=== PATIENT | male | born 1985 | race Two or more races ===

== ENCOUNTER 2017-03-22 20:46 | Emergency (ER) | payer OTHER ==
[2017-03-22] MEDS ORDERED: IBUPROFEN 400 MG TABLET (FP) PO ONE ×2 (20:58→21:24)
--- NOTE | 2017-03-22 20:58 | PDOC ---
Rapid Medical Evaluation Time Seen by Provider: 03/22/17 20:53 Medical Evaluation: Allergies Allergy/AdvReac Type Severity Reaction Status Date / Time Penicillins AdvReac Verified 06/10/16 11:03 03/22/17 20:53 The patient presents with a chief complaint of: Fever, shortness of breath, body aches, headache, sore throat I have performed a brief in-person evaluation of this patient; Pertinent physical exam findings:CTAB, RRR, Afebrile I have ordered the following: Rapid Strep, influenza, Motrin The patient will proceed to the ED for further evaluation.
[2017-03-22 20:59] VITALS: BP 140/90; PULSE 78; TEMP 98.7; BMI 24.3
[2017-03-22] MEDS ORDERED: ALBUTEROL SO4 2.5/IPRATROPIUM 0.5 INH SOL 3 ML VIAL.NEB. NEB ONE ×3 (21:29→21:59)
--- NOTE | 2017-03-22 21:30 | PDOC ---
History of Present Illness - General Chief Complaint: Cold Symptoms Stated Complaint: S.O.B Time Seen by Provider: 03/22/17 20:53 History Source: Patient Exam Limitations: No Limitations - History of Present Illness Initial Comments: 03/22/17 21:25 31 yr male with c/o cough sore throat fever for 3 days . Pt denies chest pain , has history of HIV, bronchitis, smoking, anxiety. Severity: reports: mild (3 days ) Possible Cause: Yes: occasional episodes Past History - Past Medical History Allergies/Adverse Reactions: Allergies Allergy/AdvReac Type Severity Reaction Status Date / Time Penicillins AdvReac Verified 03/22/17 20:56 Home Medications: Ambulatory Orders Albuterol Sulfate Inhaler - [Ventolin HFA Inhaler -] 1 - 2 inh PO Q4H #1 inhaler 10/14/16 Abacavir/Dolutegravir/Lamivudi [Triumeq Tablet] 1 each PO DAILY #30 tablet 02/22 Lactose-Reduced Food [Ensure Liquid] 237 ml PO TID #96 liquid 02/22/17 Mv-Min/Iron/Folic AC/Geo/D3/Aa [K-[place] Immune Support Tablet] 1 each PO DAILY # 30 tablet 02/22/17 Sertraline HCl [Zoloft] 100 mg PO AM #60 tablet MDD 2 02/22/17 Venlafaxine HCl ER [Effexor Xr -] 37.5 mg PO DAILY #30 cap.er.24h 02/22/17 Venlafaxine HCl ER [Effexor Xr -] 37.5 mg PO DAILY #30 cap.er.24h 02/22/17 Zolpidem Tartrate [Ambien] 10 mg PO HS #30 tablet MDD 1 02/22/17 Albuterol 0.083% Nebulizer Leeanna [Ventolin 0.083% Nebulizer Soln -] 1 neb NEB Q4H #30 vial 03/22/17 Azithromycin [Zithromax -] 250 mg PO UTDICT #6 tab 03/22/17 Prednisone [Deltasone -] 20 mg PO DAILY #5 tablet 03/22/17 Anemia: No Asthma: No Cancer: No Cardiac Disorders: No CVA: No COPD: No (bronchitis ) CHF: No DVT: No Dementia: No Diabetes: No GI Disorders: No Disorders: No HTN: No Hypercholesterolemia: No HIV: Yes Liver Disease: No Psychiatric Problems: Yes (anxiety) Seizures: No Thyroid Disease: No - Surgical History Abdominal Surgery: No Appendectomy: No Cardiac Surgery: No Cholecystectomy: No Lung Surgery: No Neurologic Surgery: No - Suicide/Smoking/Psychosocial Hx Smoking History: Never smoked Have you smoked in the past 12 months: No Number of Cigarettes Smoked Daily: 6 If you are a former smoker, when did you quit?: 2 months ago Cigars Per Day: 0 Information on smoking cessation initiated: No Hx Alcohol Use: No Drug/Substance Use Hx: No Substance Use Type: None Hx Substance Use Treatment: No Respiratory Specific PMHX - Complaint Specific PMHX Bronchitis: Yes Review of Systems - Review of Systems Able to Perform ROS?: Yes Is the patient limited Turkmen proficient: No Constitutional: No: Symptoms Reported HEENTM: Yes: Symptoms Reported, Throat Pain Respiratory: Yes: Cough, Shortness of Breath, Productive cough Cardiac (ROS): No: Symptoms Reported ABD/GI: No: Symptoms Reported : No: Symptoms Reported Musculoskeletal: No: Symptoms Reported Integumentary: No: Symptoms Reported Neurological: No: Symptoms reported *Physical Exam - Vital Signs Last Vital Signs Temp Pulse Resp BP Pulse Ox 98.7 F 78 18 140/90 100 03/22/17 20:56 03/22/17 20:56 03/22/17 20:56 03/22/17 20:56 03/22/17 20:56 - Physical Exam General Appearance: Yes: Nourished, Appropriately Dressed HEENT: positive: EOMI, JERONIMO, TMs Normal, Pharynx Normal Neck: positive: Supple. negative: Tender, Lymphadenopathy (R), Lymphadenopathy (L) Respiratory/Chest: positive: Wheezing Cardiovascular: positive: Regular Rhythm, Regular Rate Gastrointestinal/Abdominal: positive: Normal Bowel Sounds, Soft Musculoskeletal: positive: Normal Inspection Extremity: positive: Normal Capillary Refill, Normal Inspection, Normal Range of Motion Medical Decision Making - Medical Decision Making 03/22/17 21:31 cc: cough sore throat states fever yesterday non toxic stable vitals afebrile will give duoneb now, CXR rapid strep and flu sent from [facility] 03/22/17 22:03 pt improved after nebulizer *DC/Admit/Observation/Transfer Diagnosis at time of Disposition: Bronchitis - Prescriptions Prescriptions: Albuterol 0.083% Nebulizer Leeanna [Ventolin 0.083% Nebulizer Soln -] 1 neb NEB Q4H #30 vial Azithromycin [Zithromax -] 250 mg PO UTDICT #6 tab Prednisone [Deltasone -] 20 mg PO DAILY #5 tablet - Referrals Referrals: Santana Richards, TOOL SPECIALIST [Primary Care Provider] - - Patient Instructions Printed Discharge Instructions: DI for Acute Bronchitis Additional Instructions: use the nebulizer as prescribed at home take the zpack as directed take the next dose of prednisone tomorrow drink pleanty of water to stay well hydrated follow with your doctor TOMORROW Return to ER for any worsening symptoms right away - Post Discharge Activity
[2017-03-22] MEDS ORDERED: predniSONE 20 MG TABLET (UD) PO ONE (21:32)
[2017-03-22] MEDS ORDERED: predniSONE 20 MG TABLET (UD) ONE (21:41)
[2017-03-22] MEDS ORDERED: ALBUTEROL SO4 0.083% IH SOL 2.5 MG/3 ML VIAL.NEB. NEB ONE (21:59)
== END 2017-03-22 22:21 | disposition home or self-care (01) ==
LOC: JERFT 20:46
PROC: 3E0F7GC Introduction of Other Therapeutic Substance into Respiratory Tract, Via Natural or Artificial Opening (ICD-10-PCS; principal; 2017-03-22)
PROC: 3E0F7GC Introduction of Other Therapeutic Substance into Respiratory Tract, Via Natural or Artificial Opening (ICD-10-PCS; 2017-03-22)
DX: J40 Bronchitis, not specified as acute or chronic (principal); R51 Headache
CPT/HCPCS: 71046-TC; 87070; 87430; 87804; 99281-25

== ENCOUNTER 2020-06-25 04:52 | Day surgery (SDC) | payer OTHER ==
[2020-06-24 10:10] VITALS: BMI 31.3
[2020-06-25 10:54] VITALS: TEMP 97.8
[2020-06-25 11:31] VITALS: BP 119/67; PULSE 72
== END 2020-06-25 11:40 | disposition home or self-care (01) ==
LOC: JASU-ENDO 04:52
PROVIDERS: ATTEND Internal Medicine Gastroenterology
PROC: 0DB78ZX Excision of Stomach, Pylorus, Via Natural or Artificial Opening Endoscopic, Diagnostic (ICD-10-PCS; 2020-06-25)
PROC: 0DB28ZX Excision of Middle Esophagus, Via Natural or Artificial Opening Endoscopic, Diagnostic (ICD-10-PCS; 2020-06-25)
PROC: 0DB38ZX Excision of Lower Esophagus, Via Natural or Artificial Opening Endoscopic, Diagnostic (ICD-10-PCS; 2020-06-25)
PROC: 0DB98ZX Excision of Duodenum, Via Natural or Artificial Opening Endoscopic, Diagnostic (ICD-10-PCS; principal; 2020-06-25 10:00)
DX: K29.50 Unspecified chronic gastritis without bleeding (principal); K25.3 Acute gastric ulcer without hemorrhage or perforation; K44.9 Diaphragmatic hernia without obstruction or gangrene; R10.13 Epigastric pain
CPT/HCPCS: 88305-TC; 88342-TC

== ENCOUNTER 2021-04-01 09:22 | Emergency (ER) | payer OTHER ==
[2021-04-01 09:42] VITALS: BMI 25.1
[2021-04-01] MEDS ORDERED: SOTROVIMAB 500 MG in SODIUM CHLORIDE 100 ML IVPB ONE (10:01)
[2021-04-01 14:02] VITALS: BP 123/80; PULSE 80; TEMP 97.6
== END 2021-04-01 13:10 | disposition home or self-care (01) ==
LOC: JCOVINFU 09:22
DX: U07.1 COVID-19 (principal)
CPT/HCPCS: 99284-25; M0247; Q0247

== ENCOUNTER 2021-05-19 12:16 | Emergency (ER) | payer OTHER ==
[2021-05-19 12:35] VITALS: TEMP 98.2; BMI 26.6
[2021-05-19 13:25] LABS: BASO % 0.3 % (0-2.0); EOS % 0.3 % (0-4.5); HEMATOCRIT 40.8 % (35.4-49); HEMOGLOBIN 14.5 GM/dL (11.7-16.9); LYMPH % 15.6 % (8-40); MCH 32.3 pg (25.7-33.7); MCHC 35.6 g/dl (32.0-35.9); MEAN CELL VOLUME 90.9 fl (80-96); NEUT % 74.8 % (42.8-82.8); PLATELET COUNT 336 10^3/uL (134-434); RBC 4.48 M/mm3 (4.00-5.60); RDW 12.8 % (11.9-15.9); WHITE BLOOD COUNT 6.8 K/mm3 (4.0-10.0)
[2021-05-19 13:54] LABS: ALBUMIN 4.1 g/dl (3.4-5.0); BLOOD UREA NITROGEN 11.8 mg/dL (7-18); CALCIUM 8.8 mg/dL (8.5-10.1)
[2021-05-19 13:57] LABS: CREATININE 0.8 mg/dL (0.55-1.3)
[2021-05-19 13:59] LABS: BILIRUBIN,TOTAL 1.8 mg/dL (0.2-1); TOT PROT 7.2 g/dl (6.4-8.2)
[2021-05-19 16:39] VITALS: BP 133/91; PULSE 74
[2021-05-20 13:08] LABS: SARS-CoV-2 NAA Not Detected (Not Detected)
== END 2021-05-19 16:43 | disposition home or self-care (01) ==
LOC: JER 12:16
DX: R06.02 Shortness of breath (principal); R51.9 Headache, unspecified; Z21 Asymptomatic human immunodeficiency virus [HIV] infection status
CPT/HCPCS: 36415; 71046-TC-FY; 71275-TC; 80053; 84484; 85025; 86359; 86360; 99285-25; C9803; Q9967; U0003; U0005

== ENCOUNTER 2022-01-16 13:34 | Emergency (ER) | payer OTHER ==
[2022-01-16 13:51] VITALS: TEMP 100.2; BMI 25.8
[2022-01-16] MEDS ORDERED: SODIUM CHLORIDE 0.9% 500 ML INFUS.BAG IV ONE (14:16)
[2022-01-16] MEDS ORDERED: PANTOPRAZOLE SODIUM 40 MG VIAL IVPUSH ONE (14:17)
[2022-01-16] MEDS ORDERED: ONDANSETRON 4 MG/2 ML VIAL IVPUSH ONE (14:17)
[2022-01-16] MEDS ORDERED: ACETAMINOPHEN 1000 MG/100 ML BAG IVPB ONE (14:17)
[2022-01-16] MEDS ORDERED: ONDANSETRON 4 MG/2 ML VIAL ONE (15:29)
[2022-01-16] MEDS ORDERED: PANTOPRAZOLE SODIUM 40 MG VIAL ONE (15:29)
[2022-01-16] MEDS ORDERED: ACETAMINOPHEN INJECTION 100 ML IVPB ONE (15:29)
[2022-01-16 16:16] LABS: HEMATOCRIT 39.5 % (35.4-49); HEMOGLOBIN 13.9 GM/dL (11.7-16.9); MCH 31.9 pg (25.7-33.7); MCHC 35.1 g/dl (32.0-35.9); MEAN PLT VOLUME 7.4 fl (7.5-11.1); PLATELET COUNT 297 10^3/uL (134-434); RBC 4.35 M/mm3 (4.00-5.60); RDW 12.2 % (11.9-15.9); WHITE BLOOD COUNT 8.3 K/mm3 (4.0-10.0)
[2022-01-16 16:19] LABS: EPI CELLS 7 /uL (0-25.1); HYALINE CASTS 2 /uL (0-3.1); URINE APPEARANCE CLEAR; URINE BACTERIA 0 /uL (0-1359); URINE BILIRUBIN 1+ (NEGATIVE); URINE COLOR DK YELLOW; URINE GLUCOSE (UA) NEGATIVE (NEGATIVE); URINE KETONE 1+ (NEGATIVE); URINE LEUK ESTERASE TRACE (NEGATIVE); URINE NITRITE NEGATIVE (NEGATIVE); URINE PROTEIN TRACE (NEGATIVE); URINE RBC 18 /uL (0-23.9); URINE WBC 7 /uL (0-25.8)
[2022-01-16 16:28] LABS: INR 1.31 (0.83-1.09); PROTHROMBIN TIME (PATIENT) 15.1 SEC (9.7-13.0)
[2022-01-16 16:34] LABS: BASO % 0.1 % (0-2.0); LYMPH % 8.9 % (8-40); MONO % 18.3 % (3.8-10.2); NEUT % 72.7 % (42.8-82.8)
[2022-01-16 16:35] LABS: CALCIUM 8.1 mg/dL (8.5-10.1)
[2022-01-16 16:36] LABS: ALBUMIN 3.4 g/dl (3.4-5.0); BLOOD UREA NITROGEN 10.6 mg/dL (7-18)
[2022-01-16 16:39] LABS: CREATININE 0.8 mg/dL (0.55-1.3)
[2022-01-16 16:41] LABS: TOT PROT 6.4 g/dl (6.4-8.2)
[2022-01-16] MEDS ORDERED: IBUPROFEN 400 MG TABLET (FP) PO ONE ×2 (19:24→19:39)
[2022-01-16 20:30] VITALS: BP 130/67; PULSE 100; RESP 20
== END 2022-01-16 20:31 | disposition home or self-care (01) ==
LOC: JER 13:34
PROC: 3E0333Z Introduction of Anti-inflammatory into Peripheral Vein, Percutaneous Approach (ICD-10-PCS; principal; 2022-01-16)
PROC: 3E033GC Introduction of Other Therapeutic Substance into Peripheral Vein, Percutaneous Approach (ICD-10-PCS; 2022-01-16)
PROC: 3E033GC Introduction of Other Therapeutic Substance into Peripheral Vein, Percutaneous Approach (ICD-10-PCS; 2022-01-16)
DX: K52.9 Noninfective gastroenteritis and colitis, unspecified (principal)
CPT/HCPCS: 0241U-QW; 36415; 71046-TC-FY; 76705-TC; 80053; 81003; 84484; 85025; 85610; 93005; 93010; 99285-25

== ENCOUNTER 2022-06-17 13:15 | Emergency (ER) | payer OTHER ==
[2022-06-17 13:28] VITALS: BP 153/93; PULSE 81; RESP 18; TEMP 99; BMI 24.3
[2022-06-17] MEDS ORDERED: ALBUTEROL SO4 2.5/IPRATROPIUM 0.5 INH SOL 3 ML VIAL.NEB. NEB ONE (14:53)
[2022-06-17] MEDS ORDERED: DEXAMETHASONE SOD PHOSPHATE 10 MG/1 ML VIAL IM ONE (14:55)
[2022-06-17] MEDS ORDERED: DEXAMETHASONE SOD PHOSPHATE 10 MG/1 ML VIAL ONE (15:04)
[2022-06-17] MEDS: ALBUTEROL SO4 2.5/IPRATROPIUM 0.5 INH SOL 3 ML VIAL.NEB. NEB SCH ×2 (15:06→15:07)
== END 2022-06-17 16:45 | disposition home or self-care (01) ==
LOC: JERFT 13:15 → JER 13:15
PROC: 3E0F7GC Introduction of Other Therapeutic Substance into Respiratory Tract, Via Natural or Artificial Opening (ICD-10-PCS; principal; 2022-06-17)
PROC: 3E023GC Introduction of Other Therapeutic Substance into Muscle, Percutaneous Approach (ICD-10-PCS; 2022-06-17)
DX: R07.89 Other chest pain (principal); Z20.822 Contact with and (suspected) exposure to COVID-19
CPT/HCPCS: 0241U-QW; 71046-TC-FY; 93005; 93010; 99285-25; J1100

== ENCOUNTER 2022-06-18 20:59 | Inpatient (IN) | payer OTHER ==
[2022-06-18] MEDS ORDERED: ACETAMINOPHEN 1000 MG/100 ML BAG IVPB ONE (21:35)
[2022-06-18] MEDS ORDERED: ACETAMINOPHEN INJECTION 100 ML IVPB ONE (21:51)
[2022-06-18 21:52] LABS: VENOUS BASE EXCESS 0.8 mmol/L (-2-2); VENOUS O2 SATURATION 89.7 % (70-80); VENOUS PCO2 31.7 mmHg (38-52); VENOUS PH 7.482 (7.310-7.410)
[2022-06-18 21:57] LABS: BASO % 0.2 % (0-2.0); EOS % 0.1 % (0-4.5); HEMATOCRIT 44.7 % (35.4-49); HEMOGLOBIN 15.8 GM/dL (11.7-16.9); LYMPH % 11.3 % (8-40); MCH 31.5 pg (25.7-33.7); MCHC 35.4 g/dl (32.0-35.9); MEAN CELL VOLUME 88.8 fl (80-96); MONO % 3.5 % (3.8-10.2); NEUT % 84.9 % (42.8-82.8); PLATELET COUNT 194 10^3/uL (134-434); RBC 5.03 M/mm3 (4.00-5.60); RDW 12.6 % (11.9-15.9); WHITE BLOOD COUNT 4.8 K/mm3 (4.0-10.0)
[2022-06-18 22:18] LABS: CALCIUM 7.6 mg/dL (8.5-10.1); LACTIC ACID 3.8 mmol/L (0.4-2.0)
[2022-06-18 22:19] LABS: ALBUMIN 2.9 g/dl (3.4-5.0); BLOOD UREA NITROGEN 15.4 mg/dL (7-18)
[2022-06-18] MEDS ORDERED: AZITHROMYCIN IVPB 500 MG in DEXTROSE 5%-WATER - 250 ML IVPB ONE (22:21)
[2022-06-18 22:23] LABS: BILIRUBIN,TOTAL 1.7 mg/dL (0.2-1)
[2022-06-18 22:26] LABS: ANISOCYTOSIS 1+; MACROCYTOSIS 0; N-TERMINAL BNP 744.9 pg/ml (5-125)
[2022-06-18] MEDS ORDERED: AZITHROMYCIN IVPB 500 MG/250 ML BAG IVPB ONE (22:54)
[2022-06-18] MEDS ORDERED: SODIUM CHLORIDE 0.9% 500 ML INFUS.BAG IV ONE (23:04)
[2022-06-18] MEDS ORDERED: LACTATED RINGERS SOLUTION 1,000 ML/1,000 ML INFUS.BAG IV SCH (23:15)
[2022-06-19] MEDS ORDERED: ACETAMINOPHEN 325 MG TABLET (FP) PO PRN (00:10)
[2022-06-19] MEDS ORDERED: SULFAMETHOXAZOLE/TRIMETHOPRIM 800MG/160MG D.S. TABLET PO SCH (00:15)
[2022-06-19] MEDS ORDERED: VANCOMYCIN 1 GM/200 ML PREMIX BAG (RESTRICTED TO ID ONLY) IVPB SCH (00:30)
[2022-06-19] MEDS ORDERED: ALBUTEROL SO4 2.5/IPRATROPIUM 0.5 INH SOL 3 ML VIAL.NEB. NEB ONE (01:43)
[2022-06-19] MEDS ORDERED: methylPREDNISolone NA SUCC 40 MG/1 ML VIAL ONE (01:43)
[2022-06-19] MEDS ORDERED: ACETAMINOPHEN 325 MG TABLET (FP) ONE (01:43)
[2022-06-19] MEDS ORDERED: ONDANSETRON 4 MG/2 ML VIAL IVPUSH ONE (01:49)
[2022-06-19] MEDS ORDERED: ONDANSETRON 4 MG/2 ML VIAL ONE (01:50)
[2022-06-19] MEDS: ALBUTEROL SO4 2.5/IPRATROPIUM 0.5 INH SOL 3 ML VIAL.NEB. NEB SCH ×5 (02:01→19:53)
[2022-06-19] MEDS: LACTATED RINGERS SOLUTION 1,000 ML IV SCH (02:01)
[2022-06-19] MEDS: methylPREDNISolone NA SUCC 40 MG/1 ML VIAL IVPUSH SCH ×4 (02:02→21:33)
[2022-06-19 03:37] VITALS: BMI 26.6
[2022-06-19] MEDS: ABACAVIR/DOLUTEGRAVIR/LAMIVUDI (TRIUMEQ) TABLET PO SCH (09:25)
[2022-06-19] MEDS: ENOXAPARIN NA (PORCINE) 40 MG/0.4 ML DISP.SYRIN SQ SCH (09:25)
[2022-06-19] MEDS: PANTOPRAZOLE 20 MG TABLET PO SCH (09:25)
[2022-06-19] MEDS: ONDANSETRON *ODT* 4 MG TABLET SL SCH ×2 (09:25→21:33)
[2022-06-19] MEDS ORDERED: SULFAMETHOXAZOLE 80 MG/TRIMETHOPRIM 16 MG/ML VIAL IVPB SCH (10:00)
[2022-06-19] MEDS ORDERED: WATER IVPB SCH (10:45)
[2022-06-19] MEDS ORDERED: DEXTROSE 5% IVPB SCH (10:45)
[2022-06-19] MEDS ORDERED: SULFAMETHOXAZOLE IVPB SCH (10:45)
[2022-06-19] MEDS ORDERED: TRIMETHOPRIM IVPB SCH (10:45)
[2022-06-19] MEDS: LIDOCAINE 5% TOPICAL PATCH TP SCH (11:34)
[2022-06-19] MEDS ORDERED: ALBUTEROL SO4 0.042% IH SOL 1.25 MG/3 ML VIAL.NEB NEB PRN (14:53)
[2022-06-19 15:20] LABS: EPI CELLS 4 /uL (0-25.1); HYALINE CASTS 0 /uL (0-3.1); PH,URINE 7.5 (5.0-8.0); URINE APPEARANCE CLEAR; URINE BACTERIA 6 /uL (0-1359); URINE BILIRUBIN NEGATIVE (NEGATIVE); URINE COLOR YELLOW; URINE GLUCOSE (UA) NEGATIVE (NEGATIVE); URINE KETONE TRACE (NEGATIVE); URINE LEUK ESTERASE NEGATIVE (NEGATIVE); URINE NITRITE NEGATIVE (NEGATIVE); URINE PROTEIN 1+ (NEGATIVE); URINE RBC 9 /uL (0-23.9); URINE UROBILINOGEN 4.0 E.U/dl mg/dL (0.2-1.0); URINE WBC 2 /uL (0-25.8)
[2022-06-19] MEDS ORDERED: VANCOMYCIN IVPB ONE (15:30)
[2022-06-19] MEDS ORDERED: VANCOMYCIN PREMIX 1.5 GM 1,500 MG/300 ML BAG IVPB ONE (15:30)
[2022-06-19 19:06] LABS: LACTIC ACID 3.2 mmol/L (0.4-2.0)
[2022-06-19] MEDS: LIDOCAINE PATCH REMOVAL MC SCH (21:33)
[2022-06-19 22:29] LABS: LACTIC ACID 2.5 mmol/L (0.4-2.0)
[2022-06-20] MEDS ORDERED: VANCOMYCIN 1 GM/200 ML PREMIX BAG (RESTRICTED TO ID ONLY) IVPB SCH (00:30)
[2022-06-20] MEDS: methylPREDNISolone NA SUCC 40 MG/1 ML VIAL IVPUSH SCH ×3 (03:14→21:33)
[2022-06-20] MEDS ORDERED: VANCOMYCIN/WATER 1250 MG 1,250 MG/250 ML BAG IVPB SCH ×2 (03:30→05:00)
[2022-06-20] MEDS: LACTATED RINGERS SOLUTION 1,000 ML IV SCH (04:43)
[2022-06-20] MEDS: ALBUTEROL SO4 2.5/IPRATROPIUM 0.5 INH SOL 3 ML VIAL.NEB. NEB SCH ×4 (09:00→20:55)
[2022-06-20] MEDS: LACTATED RINGERS SOLUTION 1,000 ML/1,000 ML INFUS.BAG IV SCH ×2 (09:20→16:28)
[2022-06-20] MEDS: PANTOPRAZOLE 20 MG TABLET PO SCH (09:27)
[2022-06-20] MEDS: LIDOCAINE 5% TOPICAL PATCH TP SCH (09:27)
[2022-06-20] MEDS: ABACAVIR/DOLUTEGRAVIR/LAMIVUDI (TRIUMEQ) TABLET PO SCH (09:27)
[2022-06-20] MEDS: amLODIPine BESYLATE 5 MG TABLET (FP) PO SCH (09:27)
[2022-06-20] MEDS: ONDANSETRON *ODT* 4 MG TABLET SL SCH ×2 (09:27→21:34)
[2022-06-20] MEDS: ENOXAPARIN NA (PORCINE) 40 MG/0.4 ML DISP.SYRIN SQ SCH (09:27)
[2022-06-20 09:45] LABS: HEMATOCRIT 35.7 % (35.4-49); HEMOGLOBIN 12.6 GM/dL (11.7-16.9); MCH 31.2 pg (25.7-33.7); MCHC 35.2 g/dl (32.0-35.9); MEAN CELL VOLUME 88.6 fl (80-96); MEAN PLT VOLUME 8.3 fl (7.5-11.1); PLATELET COUNT 221 10^3/uL (134-434); RBC 4.03 M/mm3 (4.00-5.60); WHITE BLOOD COUNT 14.8 K/mm3 (4.0-10.0)
[2022-06-20 10:05] LABS: ALBUMIN 2.5 g/dl (3.4-5.0); CALCIUM 8.3 mg/dL (8.5-10.1); MAGNESIUM 2.3 mg/dL (1.8-2.4)
[2022-06-20 10:05] LABS: LACTIC ACID 2.3 mmol/L (0.4-2.0)
[2022-06-20 10:09] LABS: CREATININE 0.8 mg/dL (0.55-1.3); PHOSPHOROUS 1.6 mg/dL (2.5-4.9)
[2022-06-20 10:10] LABS: BILIRUBIN,TOTAL 0.9 mg/dL (0.2-1); TOT PROT 5.7 g/dl (6.4-8.2)
[2022-06-20 10:27] LABS: ANISOCYTOSIS 0; HELMET CELLS 0; HOWELL-JOLLY BODIES 0; MACROCYTOSIS 0; OVALOCYTE 0; ROULEAU 0; SICKELED CELLS 0; TARGET CELLS 0; TEAR DROP CELLS 0; TOXIC GRANULATION 0
[2022-06-20] MEDS: BUPRENORPHINE/NALOXONE 8 MG/2 MG FILM PACKET SL SCH (11:27)
[2022-06-20] MEDS: SULFAMETHOXAZOLE/TRIMETHOPRIM 800MG/160MG D.S. TABLET PO SCH (16:27)
[2022-06-20] MEDS ORDERED: KETOROLAC TROMETHAMINE 15 MG/ML VIAL IVPUSH ONE (16:29)
[2022-06-20 18:54] LABS: LACTIC ACID 2.8 mmol/L (0.4-2.0)
[2022-06-20] MEDS ORDERED: ACETAMINOPHEN 500 MG TABLET (FP) PO PRN (18:57)
[2022-06-21] MEDS: LIDOCAINE PATCH REMOVAL MC SCH ×2 (01:20→21:57)
[2022-06-21] MEDS: ALBUTEROL SO4 2.5/IPRATROPIUM 0.5 INH SOL 3 ML VIAL.NEB. NEB SCH ×4 (08:09→20:00)
[2022-06-21 09:44] LABS: HEMATOCRIT 35.2 % (35.4-49); HEMOGLOBIN 12.4 GM/dL (11.7-16.9); MCH 31.2 pg (25.7-33.7); MCHC 35.3 g/dl (32.0-35.9); MEAN CELL VOLUME 88.4 fl (80-96); MEAN PLT VOLUME 8.2 fl (7.5-11.1); PLATELET COUNT 305 10^3/uL (134-434); RBC 3.98 M/mm3 (4.00-5.60); WHITE BLOOD COUNT 15.2 K/mm3 (4.0-10.0)
[2022-06-21 10:01] LABS: ALBUMIN 2.4 g/dl (3.4-5.0); MAGNESIUM 2.2 mg/dL (1.8-2.4)
[2022-06-21 10:04] LABS: BLOOD UREA NITROGEN 13.8 mg/dL (7-18); CREATININE 0.7 mg/dL (0.55-1.3); PHOSPHOROUS 1.7 mg/dL (2.5-4.9)
[2022-06-21 10:05] LABS: BILIRUBIN,TOTAL 0.7 mg/dL (0.2-1); TOT PROT 5.7 g/dl (6.4-8.2)
[2022-06-21] MEDS: ONDANSETRON *ODT* 4 MG TABLET SL SCH ×2 (10:19→21:58)
[2022-06-21] MEDS: amLODIPine BESYLATE 5 MG TABLET (FP) PO SCH (10:19)
[2022-06-21] MEDS: LIDOCAINE 5% TOPICAL PATCH TP SCH (10:19)
[2022-06-21] MEDS: PANTOPRAZOLE 20 MG TABLET PO SCH (10:19)
[2022-06-21] MEDS: methylPREDNISolone NA SUCC 40 MG/1 ML VIAL IVPUSH SCH ×2 (10:19→21:58)
[2022-06-21] MEDS: BUPRENORPHINE/NALOXONE 8 MG/2 MG FILM PACKET SL SCH (10:19)
[2022-06-21] MEDS: SULFAMETHOXAZOLE/TRIMETHOPRIM 800MG/160MG D.S. TABLET PO SCH (10:19)
[2022-06-21] MEDS: ABACAVIR/DOLUTEGRAVIR/LAMIVUDI (TRIUMEQ) TABLET PO SCH (10:20)
[2022-06-21] MEDS: ENOXAPARIN NA (PORCINE) 40 MG/0.4 ML DISP.SYRIN SQ SCH (10:20)
[2022-06-21] MEDS: LACTATED RINGERS SOLUTION 1,000 ML/1,000 ML INFUS.BAG IV SCH (11:53)
[2022-06-21] MEDS: IBUPROFEN 600 MG TABLET (FP) PO SCH ×2 (11:53→18:33)
[2022-06-21 12:14] LABS: ANISOCYTOSIS 0; MACROCYTOSIS 0; OVALOCYTE 2+; TEAR DROP CELLS 2+; TOXIC GRANULATION 2+
[2022-06-21] MEDS ORDERED: NAPH,MB-DB/K PH,MBDB POWDER PACKET PO ONE (13:19)
[2022-06-21 16:59] LABS: LACTIC ACID 2.1 mmol/L (0.4-2.0)
[2022-06-22] MEDS: IBUPROFEN 600 MG TABLET (FP) PO SCH ×3 (02:38→19:53)
[2022-06-22] MEDS: ALBUTEROL SO4 2.5/IPRATROPIUM 0.5 INH SOL 3 ML VIAL.NEB. NEB SCH ×4 (07:36→20:05)
[2022-06-22] MEDS: ONDANSETRON *ODT* 4 MG TABLET SL SCH ×2 (09:58→21:46)
[2022-06-22] MEDS: methylPREDNISolone NA SUCC 40 MG/1 ML VIAL IVPUSH SCH (09:59)
[2022-06-22] MEDS: amLODIPine BESYLATE 5 MG TABLET (FP) PO SCH (10:03)
[2022-06-22 10:05] LABS: HEMATOCRIT 37.4 % (35.4-49); HEMOGLOBIN 13.2 GM/dL (11.7-16.9); MCH 31.4 pg (25.7-33.7); MCHC 35.4 g/dl (32.0-35.9); MEAN CELL VOLUME 88.8 fl (80-96); MEAN PLT VOLUME 8.3 fl (7.5-11.1); PLATELET COUNT 352 10^3/uL (134-434); RBC 4.21 M/mm3 (4.00-5.60); RDW 13.1 % (11.9-15.9); WHITE BLOOD COUNT 11.9 K/mm3 (4.0-10.0)
[2022-06-22] MEDS: SULFAMETHOXAZOLE/TRIMETHOPRIM 800MG/160MG D.S. TABLET PO SCH (10:05)
[2022-06-22] MEDS: ENOXAPARIN NA (PORCINE) 40 MG/0.4 ML DISP.SYRIN SQ SCH (10:11)
[2022-06-22] MEDS: BUPRENORPHINE/NALOXONE 8 MG/2 MG FILM PACKET SL SCH (10:11)
[2022-06-22] MEDS: LIDOCAINE 5% TOPICAL PATCH TP SCH (10:11)
[2022-06-22 10:16] LABS: ALBUMIN 2.5 g/dl (3.4-5.0); CALCIUM 8.3 mg/dL (8.5-10.1)
[2022-06-22 10:17] LABS: BLOOD UREA NITROGEN 16.4 mg/dL (7-18); MAGNESIUM 2.2 mg/dL (1.8-2.4)
[2022-06-22] MEDS: ABACAVIR/DOLUTEGRAVIR/LAMIVUDI (TRIUMEQ) TABLET PO SCH (10:18)
[2022-06-22 10:19] LABS: CREATININE 0.8 mg/dL (0.55-1.3); PHOSPHOROUS 2.2 mg/dL (2.5-4.9)
[2022-06-22 10:20] LABS: BILIRUBIN,TOTAL 0.6 mg/dL (0.2-1); TOT PROT 5.8 g/dl (6.4-8.2)
[2022-06-22] MEDS: PANTOPRAZOLE 20 MG TABLET PO SCH (10:33)
[2022-06-22 10:41] LABS: ANISOCYTOSIS 0; HELMET CELLS 0; HOWELL-JOLLY BODIES 0; MACROCYTOSIS 0; OVALOCYTE 0; ROULEAU 0; SICKELED CELLS 0; TARGET CELLS 0; TEAR DROP CELLS 0; TOXIC GRANULATION 0
[2022-06-22] MEDS: LIDOCAINE PATCH REMOVAL MC SCH (21:49)
[2022-06-23] MEDS: IBUPROFEN 600 MG TABLET (FP) PO SCH ×3 (06:08→21:21)
[2022-06-23] MEDS: ALBUTEROL SO4 2.5/IPRATROPIUM 0.5 INH SOL 3 ML VIAL.NEB. NEB SCH ×4 (08:20→20:01)
[2022-06-23 09:20] LABS: HEMATOCRIT 39.4 % (35.4-49); MCH 31.6 pg (25.7-33.7); MCHC 35.6 g/dl (32.0-35.9); MEAN CELL VOLUME 88.7 fl (80-96); MEAN PLT VOLUME 7.2 fl (7.5-11.1); PLATELET COUNT 436 10^3/uL (134-434); RBC 4.44 M/mm3 (4.00-5.60); RDW 13.6 % (11.9-15.9); WHITE BLOOD COUNT 10.9 K/mm3 (4.0-10.0)
[2022-06-23 09:51] LABS: ANISOCYTOSIS 0; HELMET CELLS 0; HOWELL-JOLLY BODIES 0; MACROCYTOSIS 0; OVALOCYTE 0; ROULEAU 0; SICKELED CELLS 0; TARGET CELLS 0; TEAR DROP CELLS 0; TOXIC GRANULATION 0
[2022-06-23] MEDS: PANTOPRAZOLE 20 MG TABLET PO SCH (09:51)
[2022-06-23] MEDS: ONDANSETRON *ODT* 4 MG TABLET SL SCH ×2 (09:51→21:22)
[2022-06-23] MEDS: SULFAMETHOXAZOLE/TRIMETHOPRIM 800MG/160MG D.S. TABLET PO SCH (09:51)
[2022-06-23] MEDS: BUPRENORPHINE/NALOXONE 8 MG/2 MG FILM PACKET SL SCH (09:51)
[2022-06-23] MEDS: amLODIPine BESYLATE 5 MG TABLET (FP) PO SCH (09:51)
[2022-06-23 09:52] LABS: ALBUMIN 2.5 g/dl (3.4-5.0); MAGNESIUM 1.7 mg/dL (1.8-2.4)
[2022-06-23] MEDS: ENOXAPARIN NA (PORCINE) 40 MG/0.4 ML DISP.SYRIN SQ SCH (09:52)
[2022-06-23 09:53] LABS: BLOOD UREA NITROGEN 16.4 mg/dL (7-18)
[2022-06-23] MEDS: methylPREDNISolone NA SUCC 40 MG/1 ML VIAL IVPUSH SCH (09:53)
[2022-06-23 09:55] LABS: PHOSPHOROUS 2.5 mg/dL (2.5-4.9)
[2022-06-23 09:56] LABS: CREATININE 0.8 mg/dL (0.55-1.3)
[2022-06-23 09:57] LABS: BILIRUBIN,TOTAL 0.8 mg/dL (0.2-1); TOT PROT 5.6 g/dl (6.4-8.2)
[2022-06-23] MEDS: LIDOCAINE 5% TOPICAL PATCH TP SCH (10:34)
[2022-06-23] MEDS: ABACAVIR/DOLUTEGRAVIR/LAMIVUDI (TRIUMEQ) TABLET PO SCH (10:34)
[2022-06-23] MEDS ORDERED: MAGNESIUM 1GM/D5W - 1 GM/100 ML IVPB IVPB ONE (14:27)
[2022-06-23] MEDS: LIDOCAINE PATCH REMOVAL MC SCH (21:22)
[2022-06-24] MEDS: IBUPROFEN 600 MG TABLET (FP) PO SCH (03:30)
[2022-06-24] MEDS: PANTOPRAZOLE 20 MG TABLET PO SCH (09:22)
[2022-06-24] MEDS: ENOXAPARIN NA (PORCINE) 40 MG/0.4 ML DISP.SYRIN SQ SCH (09:22)
[2022-06-24] MEDS: ALBUTEROL SO4 2.5/IPRATROPIUM 0.5 INH SOL 3 ML VIAL.NEB. NEB SCH ×4 (09:22→20:46)
[2022-06-24] MEDS: LIDOCAINE 5% TOPICAL PATCH TP SCH (09:22)
[2022-06-24] MEDS: BUPRENORPHINE/NALOXONE 8 MG/2 MG FILM PACKET SL SCH (09:22)
[2022-06-24] MEDS: ONDANSETRON *ODT* 4 MG TABLET SL SCH ×2 (09:22→21:35)
[2022-06-24] MEDS: amLODIPine BESYLATE 5 MG TABLET (FP) PO SCH (09:22)
[2022-06-24] MEDS: SULFAMETHOXAZOLE/TRIMETHOPRIM 800MG/160MG D.S. TABLET PO SCH (09:22)
[2022-06-24] MEDS: methylPREDNISolone NA SUCC 40 MG/1 ML VIAL IVPUSH SCH (09:23)
[2022-06-24 09:36] LABS: HEMATOCRIT 44.3 % (35.4-49); HEMOGLOBIN 15.2 GM/dL (11.7-16.9); MCH 30.8 pg (25.7-33.7); MCHC 34.4 g/dl (32.0-35.9); MEAN CELL VOLUME 89.5 fl (80-96); MEAN PLT VOLUME 6.9 fl (7.5-11.1); PLATELET COUNT 534 10^3/uL (134-434); RBC 4.95 M/mm3 (4.00-5.60); RDW 13.5 % (11.9-15.9); WHITE BLOOD COUNT 12.3 K/mm3 (4.0-10.0)
[2022-06-24 10:03] LABS: CALCIUM 8.3 mg/dL (8.5-10.1)
[2022-06-24 10:04] LABS: ALBUMIN 2.7 g/dl (3.4-5.0); BLOOD UREA NITROGEN 18.7 mg/dL (7-18)
[2022-06-24 10:07] LABS: PHOSPHOROUS 2.6 mg/dL (2.5-4.9)
[2022-06-24 10:08] LABS: TOT PROT 6.1 g/dl (6.4-8.2)
[2022-06-24 10:09] LABS: BILIRUBIN,TOTAL 1.1 mg/dL (0.2-1)
[2022-06-24 10:11] LABS: CREATININE 0.9 mg/dL (0.55-1.3)
[2022-06-24 10:47] LABS: ANISOCYTOSIS 0; MACROCYTOSIS 0
[2022-06-24] MEDS: ABACAVIR/DOLUTEGRAVIR/LAMIVUDI (TRIUMEQ) TABLET PO SCH (11:27)
[2022-06-24] MEDS: LIDOCAINE PATCH REMOVAL MC SCH (21:35)
[2022-06-25] MEDS: ALBUTEROL SO4 2.5/IPRATROPIUM 0.5 INH SOL 3 ML VIAL.NEB. NEB SCH ×4 (07:30→20:05)
[2022-06-25] MEDS: BUPRENORPHINE/NALOXONE 8 MG/2 MG FILM PACKET SL SCH (09:11)
[2022-06-25] MEDS: LIDOCAINE 5% TOPICAL PATCH TP SCH (09:11)
[2022-06-25] MEDS: PANTOPRAZOLE 20 MG TABLET PO SCH (09:11)
[2022-06-25] MEDS: amLODIPine BESYLATE 5 MG TABLET (FP) PO SCH (09:11)
[2022-06-25] MEDS: ABACAVIR/DOLUTEGRAVIR/LAMIVUDI (TRIUMEQ) TABLET PO SCH (09:11)
[2022-06-25] MEDS: ONDANSETRON *ODT* 4 MG TABLET SL SCH ×2 (09:11→21:02)
[2022-06-25] MEDS: SULFAMETHOXAZOLE/TRIMETHOPRIM 800MG/160MG D.S. TABLET PO SCH (09:11)
[2022-06-25] MEDS: ENOXAPARIN NA (PORCINE) 40 MG/0.4 ML DISP.SYRIN SQ SCH (09:12)
[2022-06-25] MEDS ORDERED: PrednisoLONE 15 MG/5 ML UNIT-DOSE CUP PO SCH (10:00)
[2022-06-25] MEDS ORDERED: POLYETHYLENE GLYCOL (HEALTHYLAX) 3350 17 GM PACKET PO PRN (11:36)
[2022-06-25] MEDS: LIDOCAINE PATCH REMOVAL MC SCH (21:02)
[2022-06-25 22:36] VITALS: RESP 20
[2022-06-26] MEDS: ALBUTEROL SO4 2.5/IPRATROPIUM 0.5 INH SOL 3 ML VIAL.NEB. NEB SCH ×3 (08:50→15:00)
[2022-06-26] MEDS: BUPRENORPHINE/NALOXONE 8 MG/2 MG FILM PACKET SL SCH (09:00)
[2022-06-26] MEDS: LIDOCAINE 5% TOPICAL PATCH TP SCH (09:00)
[2022-06-26] MEDS: ENOXAPARIN NA (PORCINE) 40 MG/0.4 ML DISP.SYRIN SQ SCH (09:00)
[2022-06-26] MEDS: ONDANSETRON *ODT* 4 MG TABLET SL SCH (09:00)
[2022-06-26] MEDS: SULFAMETHOXAZOLE/TRIMETHOPRIM 800MG/160MG D.S. TABLET PO SCH (09:01)
[2022-06-26] MEDS: amLODIPine BESYLATE 5 MG TABLET (FP) PO SCH (09:01)
[2022-06-26] MEDS: ABACAVIR/DOLUTEGRAVIR/LAMIVUDI (TRIUMEQ) TABLET PO SCH (09:01)
[2022-06-26] MEDS: PANTOPRAZOLE 20 MG TABLET PO SCH (09:01)
[2022-06-26 09:16] VITALS: BP 109/63; PULSE 93; TEMP 98.2
[2022-06-26] MEDS ORDERED: predniSONE 20 MG TABLET (UD) PO SCH (10:00)
== END 2022-06-26 18:11 | disposition home or self-care (01) | DRG 974 ==
LOC: JER 20:59 → JERBED 22:24 → J6S 06-19 03:17
PROVIDERS: ADMIT Internal Medicine; ATTEND Internal Medicine
DX: A41.9 Sepsis, unspecified organism (principal); J96.01 Acute respiratory failure with hypoxia; B20 Human immunodeficiency virus [HIV] disease; J13 Pneumonia due to Streptococcus pneumoniae; E87.20 Acidosis, unspecified; D72.829 Elevated white blood cell count, unspecified; D75.839 Thrombocytosis, unspecified; I10 Essential (primary) hypertension
CPT/HCPCS: 0241U-QW; 36415; 71045-TC-FY; 71046-TC-FY; 71250-TC; 80053; 81003; 82803; 83605; 83615; 83735; 83880; 84100; 84484; 85025; 86359; 86360; 87040; 87070; 87077; 87081; 87186; 87205; 87536; 87899; 93005; 93010; 94010; 94640; 94761; 99291; Q0162

== ENCOUNTER 2022-09-19 14:19 | Emergency (ER) | payer OTHER ==
[2022-09-19 14:27] VITALS: BP 136/82; PULSE 72; RESP 10; TEMP 98.5; BMI 27.3
[2022-09-19] MEDS ORDERED: SODIUM CHLORIDE 0.9% 500 ML INFUS.BAG IV ONE (15:06)
[2022-09-19] MEDS ORDERED: ACETAMINOPHEN 1000 MG/100 ML BAG IVPB ONE (15:06)
[2022-09-19] MEDS ORDERED: ACETAMINOPHEN INJECTION 100 ML IVPB ONE (15:26)
[2022-09-19] MEDS ORDERED: ALBUTEROL SO4 2.5/IPRATROPIUM 0.5 INH SOL 3 ML VIAL.NEB. NEB ONE ×2 (15:30→15:34)
[2022-09-19 15:39] LABS: BASO % 0.2 % (0-2.0); EOS % 0.1 % (0-4.5); HEMATOCRIT 45.4 % (35.4-49); LYMPH % 11.6 % (8-40); MCHC 33.2 g/dl (32.0-35.9); MEAN CELL VOLUME 93.4 fl (80-96); MEAN PLT VOLUME 7.8 fl (7.5-11.1); MONO % 5.6 % (3.8-10.2); NEUT % 82.5 % (42.8-82.8); PLATELET COUNT 330 10^3/uL (134-434); RBC 4.86 M/mm3 (4.00-5.60); RDW 13.2 % (11.9-15.9); WHITE BLOOD COUNT 8.7 K/mm3 (4.0-10.0)
[2022-09-19 16:03] LABS: POTASSIUM 3.9 mmol/L (3.5-5.1)
[2022-09-19 16:05] LABS: CALCIUM 9.5 mg/dL (8.5-10.1)
[2022-09-19 16:11] LABS: BILIRUBIN,TOTAL 0.8 mg/dL (0.2-1); TOT PROT 7.2 g/dl (6.4-8.2)
[2022-09-19 17:17] LABS: URINE APPEARANCE CLEAR; URINE BILIRUBIN NEGATIVE (NEGATIVE); URINE COLOR YELLOW; URINE GLUCOSE (UA) NEGATIVE (NEGATIVE); URINE KETONE NEGATIVE (NEGATIVE); URINE LEUK ESTERASE NEGATIVE (NEGATIVE); URINE NITRITE NEGATIVE (NEGATIVE); URINE PROTEIN NEGATIVE (NEGATIVE); URINE UROBILINOGEN 0.2 mg/dL (0.2-1.0)
== END 2022-09-19 17:50 | disposition home or self-care (01) ==
LOC: JERFT 14:19
PROC: 3E033NZ Introduction of Analgesics, Hypnotics, Sedatives into Peripheral Vein, Percutaneous Approach (ICD-10-PCS; principal; 2022-09-19)
PROC: 3E0F7GC Introduction of Other Therapeutic Substance into Respiratory Tract, Via Natural or Artificial Opening (ICD-10-PCS; 2022-09-19)
DX: R06.02 Shortness of breath (principal); B20 Human immunodeficiency virus [HIV] disease; R53.81 Other malaise; R53.83 Other fatigue; Z20.822 Contact with and (suspected) exposure to COVID-19
CPT/HCPCS: 0241U-QW; 36415; 71046-TC-FY; 80053; 81003; 85025; 87086; 99284-25

== ENCOUNTER 2022-11-21 10:23 | Emergency (ER) | payer SELFPAY ==
[2022-11-21 10:29] VITALS: BMI 28.1
[2022-11-21] MEDS ORDERED: METOCLOPRAMIDE HCL INJECTION 10 MG/2 ML VIAL IVPB ONE (11:40)
[2022-11-21] MEDS ORDERED: SODIUM CHLORIDE 0.9% 500 ML INFUS.BAG IV ONE (11:40)
[2022-11-21] MEDS ORDERED: ACETAMINOPHEN 1000 MG/100 ML BAG IVPB ONE (11:40)
[2022-11-21] MEDS ORDERED: LIDOCAINE 5% TOPICAL PATCH TP ONE (12:04)
[2022-11-21] MEDS ORDERED: METOCLOPRAMIDE HCL INJECTION 10 MG/2 ML VIAL ONE (12:24)
[2022-11-21] MEDS ORDERED: ACETAMINOPHEN INJECTION 100 ML IVPB ONE (12:25)
[2022-11-21] MEDS ORDERED: LIDOCAINE 5% TOPICAL PATCH ONE (12:25)
[2022-11-21 13:44] LABS: BASO % 0.4 % (0-2.0); EOS % 1.8 % (0-4.5); HEMATOCRIT 41.7 % (35.4-49); HEMOGLOBIN 14.3 GM/dL (11.7-16.9); LYMPH % 25.2 % (8-40); MCH 31.6 pg (25.7-33.7); MCHC 34.2 g/dl (32.0-35.9); MEAN CELL VOLUME 92.3 fl (80-96); MEAN PLT VOLUME 7.5 fl (7.5-11.1); NEUT % 63.6 % (42.8-82.8); PLATELET COUNT 320 10^3/uL (134-434); RBC 4.51 M/mm3 (4.00-5.60); RDW 12.8 % (11.9-15.9); WHITE BLOOD COUNT 6.1 K/mm3 (4.0-10.0)
[2022-11-21 14:03] LABS: POTASSIUM 4.4 mmol/L (3.5-5.1)
[2022-11-21 14:05] LABS: CALCIUM 8.6 mg/dL (8.5-10.1)
[2022-11-21 14:06] LABS: ALBUMIN 3.9 g/dl (3.4-5.0); BLOOD UREA NITROGEN 14.6 mg/dL (7-18)
[2022-11-21 14:09] LABS: CREATININE 0.9 mg/dL (0.55-1.3)
[2022-11-21 14:10] LABS: BILIRUBIN,TOTAL 0.7 mg/dL (0.2-1); TOT PROT 6.9 g/dl (6.4-8.2)
[2022-11-21 14:44] VITALS: BP 114/54; PULSE 60; RESP 18; TEMP 98.1
[2022-11-21] MEDS ORDERED: LIDOCAINE PATCH REMOVAL MC ONE (22:00)
== END 2022-11-21 15:41 | disposition home or self-care (01) ==
LOC: JER 10:23
PROC: 3E033NZ Introduction of Analgesics, Hypnotics, Sedatives into Peripheral Vein, Percutaneous Approach (ICD-10-PCS; principal; 2022-11-21)
PROC: 3E033GC Introduction of Other Therapeutic Substance into Peripheral Vein, Percutaneous Approach (ICD-10-PCS; 2022-11-21)
DX: M79.10 Myalgia, unspecified site (principal); R51.9 Headache, unspecified; R42 Dizziness and giddiness; R05.9 Cough, unspecified; R09.81 Nasal congestion; B34.9 Viral infection, unspecified; R11.0 Nausea; Z20.822 Contact with and (suspected) exposure to COVID-19
CPT/HCPCS: 0241U-QW; 36415; 71046-TC-FY; 80053; 82550; 85025; 93005; 93010; 99285-25

== ENCOUNTER 2023-12-20 04:33 | Day surgery (SDC) | payer OTHER ==
[2023-12-13 15:44] VITALS: BMI 27.5
[2023-12-20 08:48] VITALS: TEMP 98.3
[2023-12-20 09:14] VITALS: BP 125/91; PULSE 65; RESP 14
== END 2023-12-20 09:30 | disposition home or self-care (01) ==
LOC: JASU-ENDO 04:33
PROVIDERS: ATTEND Internal Medicine Gastroenterology
PROC: 0D978ZX Drainage of Stomach, Pylorus, Via Natural or Artificial Opening Endoscopic, Diagnostic (ICD-10-PCS; 2023-12-20)
PROC: 0D968ZX Drainage of Stomach, Via Natural or Artificial Opening Endoscopic, Diagnostic (ICD-10-PCS; principal; 2023-12-20 08:00)
DX: K29.50 Unspecified chronic gastritis without bleeding (principal); K44.9 Diaphragmatic hernia without obstruction or gangrene
CPT/HCPCS: 88305-TC; 88342-TC